=== PATIENT | male | born 1985 | race Two or more races ===

== ENCOUNTER 2020-10-16 15:34 | Emergency (ER) | payer OTHER ==
[~2020-10-16] VITALS: Ht 182.9 cm; Wt 81.6 kg
[2020-10-16] MEDS ORDERED: ACETAMINOPHEN650 M2 PO (20:13)
== END 2020-10-16 20:18 | disposition home or self-care (01) ==
LOC: ER 15:34
DX: B34.9 Viral infection, unspecified (principal); A90 Dengue fever [classical dengue]; Z11.52 Encounter for screening for COVID-19

== ENCOUNTER 2021-06-02 07:06 | Outpatient (CLI) | payer OTHER ==
[~2021-06-02 07:06] MED LIST: ACETAMINOPHEN650 M2 PO
== END 2021-06-02 07:18 | disposition home or self-care (01) ==
LOC: LAB 07:06
DX: Z20.828 Contact with and (suspected) exposure to other viral communicable diseases (principal); Z20.818 Contact with and (suspected) exposure to other bacterial communicable diseases

== ENCOUNTER → 2025-06-06 | Emergency (ER) | payer OTHER ==
[~2025-06-06] VITALS: Ht 182.9 cm; Wt 67.6 kg
[~2025-06-06] MED LIST changes: +CETIRIZINE HCL 5 MG/5 ML ML PO ONE; +GUAIFENESIN/DEXTROMETHORPHAN 100MG/10ML BLIST.PACK PO ONE; +PEPCID AC20 MG PO; +TUSSIN DM LIQU118 ML PO; +ZITHROMAX500 MG PO; +ZYRTEC10 MG PO
[2025-06-06 16:09] LABS: BASO % 0.3 % (0.1-1.2); EOS # 0.14 (0.04-0.54); EOS % 2.1 % (0.7-7.0); LYMPH # 2.25 (1.18-3.74); LYMPH % 33.4 % (19.3-53.1); MEAN PLATELET VOLUME 9.90 fl (9.4-12.4); MONO # 1.07 (0.24-0.82); NEUT # 3.25 (1.56-6.13); NEUT % 48.2 % (34.0-71.1); RED CELL DISTRIBUTION WIDTH 11.9 % (11.6-14.4)
[2025-06-06 16:11] LABS: MONO % 15.9 % (4.7-12.5)
[2025-06-06 17:08] LABS: COVID-19 AG NEGATIVE (NEGATIVE)
== END | disposition home or self-care (01) ==
LOC: ER 14:05
PROVIDERS: General Practice
DX: B34.9 Viral infection, unspecified (principal); J00 Acute nasopharyngitis [common cold]; R51.9 Headache, unspecified; R50.9 Fever, unspecified; R05.8 Other specified cough; Z20.822 Contact with and (suspected) exposure to COVID-19